=== PATIENT | male | born 1930 | race Caucasian/White ===

== ENCOUNTER 2019-04-26 10:02 | Emergency (ER) | payer OTHER ==
--- OUTSIDE RECORDS SUMMARY | 2019-04-26 10:04 | XMS REPORT ---
:1930 [facility] Address [address] [place] [address] Dr. Ornelas [address] [place] [id number] Care Team Providers Name Role Phone Unavailable Unavailable Unavailable Problems This patient has no known problems. Allergies, Adverse Reactions, Alerts This patient has no known allergies or adverse reactions. Medications This patient has no known medications.
--- NOTE | 2019-04-26 10:50 | RAD REPORT ---
EXAM DESCRIPTION: CT - CTHCSPWOC - 04/26/2019 10:18 am CLINICAL HISTORY: Trauma, head and neck injury. fall COMPARISON: No comparisons TECHNIQUE: Axial 5 mm thick images of the head were obtained. Axial 2 mm thick images of the cervical spine were obtained with sagittal and coronal reconstruction images generated and reviewed. All CT scans are performed using dose optimization technique as appropriate and may include automated exposure control or mA/KV adjustment according to patient size. FINDINGS: CT HEAD WITHOUT CONTRAST: There is evidence of a large mass in the right cerebellar hemisphere with surrounding edema. The mass measures approximately 3.7 x 3.4 cm and exerts significant mass effect on the fourth ventricle to th e left. There is mild shift of posterior fossa midline structures to the left. Prior posterior fossa craniotomy changes are also present.Generalized brain atrophy is seen with mild periventricular and d eep white matter chronic microvascular ischemic changes. No supratentorial midline shift or bleed. Mild mucoperiosteal thickening is seen in the inferior left maxillary antrum and multiple ethmoid air cells.No calvarial fracture evident. Evidence of prior right-sided binh holes and posterior fossa cr aniotomy. CT CERVICAL SPINE WITHOUT CONTRAST: Multilevel degenerative changes are present in the cervical spine. Disc thinning with posterior osteo phyte is present most prominent at C2-3, C4-5, C5-6 and C6-7.The odontoid is normal and the lateral m asses are symmetric.No prevertebral soft tissues swelling is identified. 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 No acute cervical spine abnormality. Findings were discussed with Wilmer Monaco in the emergency room 10:45 a.m. 04/26/2019 by telephone.
--- NOTE | 2019-04-26 10:52 | RAD REPORT ---
EXAM DESCRIPTION: CT - CTFB CLINICAL HISTORY: fall Fall, trauma, head injury COMPARISON: No comparisons TECHNIQUE: Axial 2 mm thick images of the face were obtained with sagittal and coronal reconstructio n images. All CT scans are performed using dose optimization technique as appropriate and may include automated exposure control or mA/KV adjustment according to patient size. FINDINGS: No acute facial bone fracture is seen.Areas of soft tissue swelling are seen in the superi or left forehead.The mandible is intact. The globes and orbital contents are grossly unremarkable.Mild multifocal paranasal sinus opacificatio n. IMPRESSION: Negative for facial bone fracture.
--- NOTE | 2019-04-26 10:54 | RAD REPORT ---
EXAM DESCRIPTION: RAD - Pelvis - 04/26/2019 10:30 am CLINICAL HISTORY: fall Fall, pelvic pain COMPARISON: None FINDINGS: AP pelvis and left hip - multiple projections are submitted No evidence of acute fracture or dislocation.
--- NOTE | 2019-04-26 10:55 | RAD REPORT ---
EXAM DESCRIPTION: RAD - Chest Single View - 04/26/2019 10:31 am CLINICAL HISTORY: fall Chest pain. COMPARISON: Brain W/Wo Cont dated 12/18/2018 FINDINGS: Portable technique limits examination quality. Elevated right hemidiaphragm is present. Lungs are mildly emphysematous but clear. The heart is dimitri l in size. No displaced fractures.
--- NOTE | 2019-04-26 10:58 | RAD REPORT ---
EXAM DESCRIPTION: RAD - Hip Left 2 View - 04/26/2019 10:30 am CLINICAL HISTORY: Fall Fall, pelvic pain COMPARISON: None FINDINGS: AP pelvis and left hip - multiple projections are submitted No evidence of acute fracture or dislocation.
[2019-04-26] MEDS ORDERED: METOPROLOL TAR 25 MG TAB ONE (11:22)
[2019-04-26] MEDS ORDERED: TETANUS & DIPHTHERIA TOX,ADULT 0.5 ML VIAL ONE (11:22)
[2019-04-26] MEDS ORDERED: LIDOCAINE 1% W/EPI 1:100,000 MDV 50 ML VIAL ONE (11:28)
[2019-04-26] MEDS ORDERED: METOPROLOL TARTRATE 5 MG/5 ML INJ IV ONE (12:42)
--- NOTE | 2019-04-26 14:09 | EDPHYS ---
Physician Documentation [facility] Name: Kerrie Shine Age: 88 yrs Sex: Male : 1930 Arrival Date: 04/26/2019 Time: 10:04 Bed 8 Private MD: BRITTNEY Physician Wilmer Dubois HPI: 04/25 10:15 This 88 yrs old Male presents to ER via EMS with complaints of Fall Injury, cp Facial Injury. 10:15 Details of fall: The patient fell from an upright position, while standing. Onset: The cp symptoms/episode began/occurred just prior to arrival. Associated injuries: The patient sustained injury to the head, laceration, of the right latter-day and above left eye, left arm, skin tear. Historical: - Allergies: 10:54 No Known Allergies; tw2 - Home Meds: 10:54 metoprolol succinate 25 mg oral Tb24 1 tab once daily [Active]; gabapentin 300 mg oral tw2 cap 1 cap 3 times per day [Active]; tamsulosin 0.4 mg oral cp24 1 cap once daily [Active]; 11:09 alprazolam 0.25 mg Oral tab [Active]; escitalopram oxalate 5 mg oral tab [Active]; jl7 - PMHx: 10:54 brain cancer; Hypertension; tw2 11:09 BPH; Depression; jl7 - PSHx: 10:54 partial crainotomy, left side; tw2 11:09 cataract; Cholecystectomy; Hernia repair; spinal; Knee surgery; jl7 - Immunization history:: Adult Immunizations Adult Immunizations up to date. - Social history:: Smoking status: Smoking status: Patient denies any tobacco usage or history of. - Immunization history: Last tetanus immunization: unknown. ROS: 10:25 Constitutional: Negative for fever, poor PO intake. cp 10:25 Eyes: Negative for redness, vision loss. cp 10:25 ENT: Negative for drainage from ear(s), ear pain, sore throat, difficulty swallowing, difficulty handling secretions. 10:25 Cardiovascular: Negative for chest pain. 10:25 Respiratory: Negative for cough, shortness of breath, wheezing. 10:25 Abdomen/GI: Negative for abdominal pain, nausea, vomiting, and diarrhea. 10:25 Back: Negative for pain at rest, pain with movement. 10:25 MS/extremity: Positive for pain, of the left hip, Negative for decreased range of motion, deformity. 10:25 Skin: Positive for laceration(s), of the right latter-day and above left eye. 10:25 Neuro: Negative for altered mental status, headache, loss of consciousness, syncope, weakness. 10:25 All other systems are negative. Exam: 10:30 Constitutional: The patient appears in no acute distress, alert, awake, cp non-diaphoretic, non-toxic, well developed, frail. 10:30 Head/face: Noted is ecchymosis, that is moderate, of the forehead and left cheek, a cp laceration(s), that is deep, that is linear, that is jagged, of the right latter-day and above left eye, swelling, that is mild, of the left cheek and left eye. 10:30 Eyes: Pupils: equal, round, and reactive to light and accomodation, Extraocular movements: intact throughout, Conjunctiva: normal, no exudate, no injection, Sclera: no appreciated abnormality. 10:30 ENT: External ear(s): are unremarkable, Ear canal(s): are normal, clear, TM's: bulging, is not appreciated, bilaterally, dullness, bilaterally, erythema, is not appreciated, bilaterally, Nose: is normal, Mouth: Lips: moist, Oral mucosa: moist, Posterior pharynx: is normal, airway is patent, no erythema, no exudate. 10:30 Neck: C-spine: C-collar placed in ED. 10:30 Chest/axilla: Inspection: normal, Palpation: is normal, no crepitus, no tenderness. 10:30 Cardiovascular: Rate: tachycardic, Rhythm: irregularly irregular, Edema: is not appreciated, JVD: is not appreciated. 10:30 Respiratory: the patient does not display signs of respiratory distress, Respirations: normal, no use of accessory muscles, no retractions, labored breathing, is not present, Breath sounds: are clear throughout, no decreased breath sounds, no stridor, no wheezing. 10:30 Abdomen/GI: Inspection: abdomen appears normal, Bowel sounds: active, all quadrants, Palpation: abdomen is soft and non-tender, in all quadrants, voluntary guarding, is not appreciated. 10:30 Back: pain, is absent, ROM is normal. 10:30 Musculoskeletal/extremity: Extremities: grossly normal except: noted in the left hip: pain, tenderness, There is no evidence of decreased ROM, deformity. 10:30 Skin: injury, skin tear left arm. 10:30 Neuro: Orientation: to person, place \T\ time. Mentation: is normal, Motor: moves all fours, strength is normal. Vital Signs: 10:00 BP 146 / 97; Pulse 138; Resp 19; Temp 98.2(O); Pulse Ox 95% on R/A; Pain 0/10; tw2 10:54 BP 142 / 101; Pulse 118; Resp 16; Pulse Ox 95% on R/A; tw2 11:15 BP 127 / 108; Pulse 86; Resp 17; Pulse Ox 96% on R/A; tw2 11:26 BP 133 / 110; Pulse 139; Resp 16; Pulse Ox 95% on R/A; tw2 11:51 BP 124 / 94; Pulse 140; Resp 18; Pulse Ox 95% on R/A; tw2 12:48 BP 131 / 87; Pulse 63; Resp 17; Pulse Ox 97% on R/A; tw2 13:29 BP 124 / 92; Pulse 71; Resp 17; Pulse Ox 97% on R/A; tw2 14:15 BP 108 / 79; Pulse 84; Resp 19; Pulse Ox 97% on R/A; tw2 14:43 BP 110 / 73; Pulse 65; Resp 17; Pulse Ox 97% on R/A; tw2 Mallorie Coma Score: 10:02 Eye Response: spontaneous(4). Verbal Response: oriented(5). Motor Response: obeys tw2 commands(6). Total: 15. Trauma Score (Adult): 10:02 Eye Response: spontaneous(1); Verbal Response: oriented(1); Motor Response: obeys tw2 commands(2); Systolic BP: > 89 mm Hg(4); Respiratory Rate: 10 to 29 per min(4); Mallorie Score: 15; Trauma Score: 12 Laceration: 13:00 Wound Repair of 2.5cm ( 1.0in ) subcutaneous laceration to right latter-day. Linear cp shaped.. Distal neuro/vascular/tendon intact. Anesthesia: Wound infiltrated with 2 mls of 1% lidocaine w/ Epi. Wound prep: Simple cleansing by nurse. Skin closed with 3 5-0 Prolene using simple sutures and sterile technique. Dressed with Bacitracin, bandaid. Patient tolerated well. 13:00 Wound Repair of 6cm ( 2.4in ) subcutaneous laceration to above left eye. Irregularly cp shaped.. Distal neuro/vascular/tendon intact. Anesthesia: Wound infiltrated with 5 mls of 1% lidocaine w/ Epi. Wound prep: Simple cleansing by nurse. Skin closed with 9 5-0 Prolene using simple sutures and sterile technique. Dressed with Bacitracin. Patient tolerated well. MDM: 10:12 Patient medically screened. cp 10:30 Differential diagnosis: closed head injury, contusion, fracture, laceration, multiple cp trauma. 12:20 Data reviewed: vital signs, nurses notes, EKG, radiologic studies, CT scan, plain cp films, I have discussed the patient's presentation/case with the attending Emergency Department Physician;. 12:22 Physician consultation: Jimbo Melendez MD was called at 12:23, was contacted at 12:23, regarding consult, patient's condition, requests discharge back to [facility] to continue hospice. 12:30 ED course: Discussed results with daughter and DR Melendez of head CT showing known brain cp mass now having mass effect. Patient in independent hospice for brain mass due to terminal nature of mass and no treatment requested. Will attempt to transition patient to assisted hospice at [facility]. 14:00 ED course: VSS. Spoke with Shannan at [facility] who reports no current assisted cp living rooms available and next week that possibly assisted living rooms may become available. Discussed this with daughter who is agreeable to discharge patient back to independent hospice. 14:07 Response to treatment: the patient's symptoms have markedly improved after treatment, cp and as a result, I will discharge patient. 04/25 10:11 Order name: CT Head C Spine cp 04/25 10:11 Order name: CT Facial Bones W/O Con cp 04/25 10:11 Order name: XRAY Pelvis cp 04/25 10:11 Order name: XRAY Hip LEFT 2 view cp 04/25 10:11 Order name: XRAY Chest (1 view) cp 04/25 10:53 Order name: CT; Complete Time: 11:05 EDMS 04/25 10:55 Order name: CT; Complete Time: 11:03 EDMS 04/25 10:55 Order name: RAD; Complete Time: 11:03 EDMS 04/25 11:05 Order name: RAD; Complete Time: 11:05 EDMS 04/25 11:05 Order name: RAD; Complete Time: 12:39 EDMS 04/25 10:17 Order name: C-Collar; Complete Time: 10:17 tw2 04/25 11:19 Order name: Dressing - Wound; Complete Time: 14:12 cp 04/25 11:19 Order name: Gloves, Sterile; Complete Time: 11:21 cp 04/25 11:19 Order name: Setup Suture Tray; Complete Time: 11:21 cp 04/25 12:32 Order name: Wound dressing; Complete Time: 12:49 cp Administered Medications: 11:23 Drug: Tetanus-Diphtheria Toxoid Adult 0.5 ml {[employer] 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 Exp: jl7 01/18/2021. Lot #: [id number]. } Route: IM; Site: left deltoid; 12:20 Follow up: Response: No adverse reaction tw2 11:23 Drug: Metoprolol 25 mg Route: PO; jl7 12:20 Follow up: Response: No adverse reaction; No change in condition tw2 11:52 Drug: Lidocaine-Epinephrine -1%: (1:100,000) 10 ml {Note: by JACK Navarrete.} Volume: 20 ml; tw2 Route: Infiltration; 12:47 Not Given (Patient Refused): Lopressor 5 mg IVP once; Hold for SBP <100 or HR <60. tw2 12:47 CANCELLED (Patient Refused): Metoprolol 25 mg PO once tw2 Disposition: 15:00 Chart complete. cp 16:29 Co-signature as Attending Physician, Wilmer Dubois MD I agree with the assessment and franko plan of care. PA/WIND[employer]TER's history reviewed, patient interviewed, and examined. Disposition: 04/26/19 14:08 Discharged to Home. Impression: Fall on same level from slipping, tripping and stumbling, Laceration without foreign body of other part of head, Pain in left hip - from fall. - Condition is Stable. - Discharge Instructions: Atrial Fibrillation, Fall Prevention in the Home, Facial Laceration, Hip Pain. - Prescriptions for Metoprolol Tartrate 25 mg Oral Tablet - take 1 tablet by ORAL route every 12 hours with a meal; 30 tablet. - Medication Reconciliation Form, Thank You Letter, Antibiotic Education, Prescription Opioid Use form. - Follow up: Jimbo Melendez MD; When: 1 week; Reason: Staple/Suture removal. - Problem is new. - Symptoms have improved. Signatures: Dispatcher [employer] EDWilmer Tse MD MD cha Page, Corey, JACK SANTIAGO cp Shira Esteban, RN RN tw2 Nusrat Larson RN RN jl7 Corrections: (The following items were deleted from the chart) 12:24 12:21 Physician consultation: Jimbo Melendez MD was called at 12:21, was contacted at 12:21, regarding consult, patient's condition, requests discharge to home and continue home hospice, 12:47 12:43 Metoprolol 25 mg PO once ordered. tw2 14:09 14:08 04/26/2019 14:08 Discharged to Home. Impression: Fall on same level from slipping, tripping and stumbling; Laceration without foreign body of other part of head. Condition is Stable. Forms are Medication Reconciliation Form, Thank You Letter, Antibiotic Education, Prescription Opioid Use. Follow up: Jimbo Melendez; When: 1 week; Reason: Staple/Suture removal. Problem is new. Symptoms have improved. 14:45 14:09 04/26/2019 14:08 Discharged to Home. Impression: Fall on same level from tw2 slipping, tripping and stumbling; Laceration without foreign body of other part of head; Pain in left hip - from fall. Condition is Stable. Discharge Instructions: Fall Prevention in the Home, Facial Laceration, Hip Pain. Forms are Medication Reconciliation Form, Thank You Letter, Antibiotic Education, Prescription Opioid Use. Follow up: Jimbo Melendez; When: 1 week; Reason: Staple/Suture removal. Problem is new. Symptoms have improved. cp
--- NOTE | 2019-04-26 14:09 | ER ---
Nurse's Notes [facility] Name: Kerrie Shine Age: 88 yrs Sex: Male : 1930 Arrival Date: 04/26/2019 Time: 10:04 Bed 8 Private MD: Diagnosis: Fall on same level from slipping, tripping and stumbling;Laceration without foreign body of other part of head;Pain in left hip-from fall Presentation: 04/25 10:00 Chief complaint: EMS states: pt fell from standing about 1 hour and a half ago and hit tw2 his head, he has lacerations noted to left and right eyebrows also skin tear noted to left forearm and upper arm area, denies LOC, states he did wait approx 30 minutes before he called daughter and then she called us. it was an unwitnessed fall, he lives on the independent side of [facility], vs stable, kerlix laury applied to forehead, bruising noted to left eye and cheek but not clear if this is fresh or not. Coronavirus screen: The patient has NOT traveled to a country currently being monitored by the CDC within the last 14 days. Ebola Screen: Patient negative for fever greater than or equal to 101.5 degrees Fahrenheit, and additional compatible Ebola Virus Disease symptoms. Initial Sepsis Screen: Does the patient meet any 2 criteria? HR > 90 bpm. No. Patient's initial sepsis screen is negative. Does the patient have a suspected source of infection? No. Patient's initial sepsis screen is negative. Risk Assessment: Do you want to hurt yourself or someone else? Patient reports no desire to harm self or others. 10:00 Method Of Arrival: EMS: [facility] tw2 10:00 Acuity: ANDREI 2 tw2 10:00 Care prior to arrival: Bleeding of injury controlled. Injury dressed. Mechanism of tw2 Injury: Fall from standing position. Trauma event details: Injury occurred in the [facility]. 10:00 Onset of symptoms was April 26, 2019. tw2 Triage Assessment: 10:01 General: Appears in no apparent distress. slender, Behavior is calm, cooperative, tw2 appropriate for age. Pain: Complains of pain in forehead, right eye and left eye. EENT: bleeding noted to left and right eyebrow area, dressing applied with laury wrap at this time, secured loosely with coban, bleeding is controlled, dried blood noted on face, bruising purple and red in color noted to left eye and cheek area. Trauma Activation: Alert Physician: ED Physician; Name: ; Notified At: ; Arrived At: Physician: General Surgeon; Name: ; Notified At: ; Arrived At: Physician: Radiology; Name: ; Notified At: ; Arrived At: Physician: Respiratory; Name: ; Notified At: ; Arrived At: Physician: Lab; Name: ; Notified At: ; Arrived At: Historical: - Allergies: 10:54 No Known Allergies; tw2 - Home Meds: :54 metoprolol succinate 25 mg oral Tb24 1 tab once daily [Active]; gabapentin 300 mg oral tw2 cap 1 cap 3 times per day [Active]; tamsulosin 0.4 mg oral cp24 1 cap once daily [Active]; 11:09 alprazolam 0.25 mg Oral tab [Active]; escitalopram oxalate 5 mg oral tab [Active]; jl7 - PMHx: 10:54 brain cancer; Hypertension; tw2 11:09 BPH; Depression; jl7 - PSHx: 10:54 partial crainotomy, left side; tw2 11:09 cataract; Cholecystectomy; Hernia repair; spinal; Knee surgery; jl7 - Immunization history:: Adult Immunizations Adult Immunizations up to date. - Social history:: Smoking status: Smoking status: Patient denies any tobacco usage or history of. - Immunization history: Last tetanus immunization: unknown. Screenin:27 Abuse screen: Denies threats or abuse. Nutritional screening: No deficits noted. tw2 Tuberculosis screening: No symptoms or risk factors identified. Fall Risk Fall in past 12 months (25 points). Primary Survey: 10:02 NO uncontrolled hemorrhage observed. A: The patient is alert. Airway: patent. tw2 Breathing/Chest: Respiratory pattern: regular, Respiratory effort: spontaneous, unlabored. Circulation: Cardiac rhythm: sinus tachycardia Heart tones present. Skin temperature: warm. Disability Alert. Exposure/Environment: All clothing and personal items were removed. Forensic evidence collection is not deemed to be indicated at this time. Items placed in patient belonging bag. There is no evidence of uncontrolled external bleeding. Obvious injury(ies) are noted at this time: skin tears noted to left arm, and lacerations noted to left and right eyebrow A warming method has been applied: A warm blanket has been provided to the patient. 11:00 Reassessment Airway Airway Patent Breathing/Chest Respiratory pattern Regular tw2 Respiratory effort Spontaneous Unlabored Breath sounds Clear Circulation Heart tones Present Color [place] Temperature Warm Dry Disability Alert. Secondary Survey: 10:30 HEENT: Eyes: Raccoon eyes noted. left cheek and left eye. Other purple and red bruising tw2 noted to left eye and under eye down into the cheek area with swelling noted. Gastrointestinal: No deficits noted. Abdomen is soft, Bowel sounds present in all quadrants. : No deficits noted. Musculoskeletal: Circulation, motion, and sensation intact. Range of motion: intact in all extremities. Assessment: 10:11 Reassessment: pt transport to CT via stretcher at this time with technical coordinator Bull. tw2 10:55 Reassessment: Patient appears in no apparent distress at this time. No changes from tw2 previously documented assessment. Patient and/or family updated on plan of care and expected duration. Pain level reassessed. Patient is alert, oriented x 3, equal unlabored respirations, skin warm/dry/pink. 10:56 Reassessment: pts daughter at bedside and confirmed some of pts hx, states "he doesn't tw2 like to say brain cancer, he says brain illness, but i dont know all his health history you will have to call Dr. Melendez", phone call to Dr. Melendez's staff, med records to be faxed to ER at this time. 11:27 Reassessment: Patient appears in no apparent distress at this time. No changes from tw2 previously documented assessment. Patient and/or family updated on plan of care and expected duration. Pain level reassessed. Patient is alert, oriented x 3, equal unlabored respirations, skin warm/dry/pink. 11:51 Reassessment: provider at bedside at this time suturing pt. tw2 12:48 Reassessment: Patient appears in no apparent distress at this time. No changes from tw2 previously documented assessment. Patient is alert, oriented x 3, equal unlabored respirations, skin warm/dry/pink. 13:30 Reassessment: Patient appears in no apparent distress at this time. No changes from tw2 previously documented assessment. Patient and/or family updated on plan of care and expected duration. Pain level reassessed. Patient is alert, oriented x 3, equal unlabored respirations, skin warm/dry/pink. 14:15 Reassessment: Patient appears in no apparent distress at this time. No changes from tw2 previously documented assessment. Patient and/or family updated on plan of care and expected duration. Pain level reassessed. Patient is alert, oriented x 3, equal unlabored respirations, skin warm/dry/pink. 14:43 Reassessment: Patient appears in no apparent distress at this time. No changes from tw2 previously documented assessment. Patient and/or family updated on plan of care and expected duration. Pain level reassessed. Patient is alert, oriented x 3, equal unlabored respirations, skin warm/dry/pink. Vital Signs: 10:00 BP 146 / 97; Pulse 138; Resp 19; Temp 98.2(O); Pulse Ox 95% on R/A; Pain 0/10; tw2 10:54 BP 142 / 101; Pulse 118; Resp 16; Pulse Ox 95% on R/A; tw2 11:15 BP 127 / 108; Pulse 86; Resp 17; Pulse Ox 96% on R/A; tw2 11:26 BP 133 / 110; Pulse 139; Resp 16; Pulse Ox 95% on R/A; tw2 11:51 BP 124 / 94; Pulse 140; Resp 18; Pulse Ox 95% on R/A; tw2 12:48 BP 131 / 87; Pulse 63; Resp 17; Pulse Ox 97% on R/A; tw2 13:29 BP 124 / 92; Pulse 71; Resp 17; Pulse Ox 97% on R/A; tw2 14:15 BP 108 / 79; Pulse 84; Resp 19; Pulse Ox 97% on R/A; tw2 14:43 BP 110 / 73; Pulse 65; Resp 17; Pulse Ox 97% on R/A; tw2 Mallorie Coma Score: 10:02 Eye Response: spontaneous(4). Verbal Response: oriented(5). Motor Response: obeys tw2 commands(6). Total: 15. Trauma Score (Adult): 10:02 Eye Response: spontaneous(1); Verbal Response: oriented(1); Motor Response: obeys tw2 commands(2); Systolic BP: > 89 mm Hg(4); Respiratory Rate: 10 to 29 per min(4); Mallorie Score: 15; Trauma Score: 12 ED Course: 10:00 Arm band placed on. tw2 10:02 Patient maintains SpO2 saturation greater than 95% on room air. tw2 10:02 Thermoregulation: warm blanket given to patient. tw2 10:03 Rigid cervical collar applied and checked by physician. tw2 10:03 Bed in low position. Call light in reach. Side rails up X2. laboratory monitor on. Pulse tw2 ox on. NIBP on. Warm blanket given. Pillow given. 10:04 Patient arrived in ED. iw 10:08 Wilmer Monaco PA is PHCP. cp 10:08 Wilmer Dubois MD is Attending Physician. cp 10:10 Shira Esteban RN is Primary Nurse. tw2 10:16 Triage completed. tw2 11:26 Wound care: was cleaned with with noted increased bleeding to LEFT eyebrow, provider tw2 aware and suture supplies at bedside at this time.. 14:07 Jimbo Melendez MD is Referral Physician. cp 14:13 Awaiting transportation, Awaiting: prior to discharge. tw2 14:43 No provider procedures requiring assistance completed. Patient did not have IV access tw2 during this emergency room visit. 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 Exp: jl7 01/18/2021. Lot #: [id number]. } Route: IM; Site: left deltoid; 12:20 Follow up: Response: No adverse reaction tw2 11:23 Drug: Metoprolol 25 mg Route: PO; jl7 12:20 Follow up: Response: No adverse reaction; No change in condition tw2 11:52 Drug: Lidocaine-Epinephrine -1%: (1:100,000) 10 ml {Note: by JACK Navarrete.} Volume: 20 ml; tw2 Route: Infiltration; 12:47 Not Given (Patient Refused): Lopressor 5 mg IVP once; Hold for SBP <100 or HR <60. tw2 12:47 CANCELLED (Patient Refused): Metoprolol 25 mg PO once tw2 Intake: 10:02 PO: 0ml; Total: 0ml. tw2 Outcome: 12:24 Patient's length of stay in the Emergency Department was greater than 2 hours. tw2 imagingPatient's length of stay extended due to 14:08 Discharge ordered by . cp 14:43 Discharged to home with family. tw2 14:43 Condition: stable 14:43 Discharge instructions given to patient, family, Instructed on discharge instructions, follow up and referral plans. safety practices, Demonstrated understanding of instructions, follow-up care, medications, Prescriptions given X 1. 14:45 Patient left the ED. tw2 Signatures: Rkuhsana Reed RN RN iw Wilmer Monaco PA PA Shira Mercado RN RN tw2 Nusrat Larson RN RN jl7 Corrections: (The following items were deleted from the chart) 13:30 12:48 Reassessment: Patient appears in no apparent distress at this time. No changes tw2 from previously documented assessment. Patient is alert, oriented x 3, equal unlabored respirations, skin warm/dry/pink. Patient is alert/active/playful, equal unlabored respirations, skin warm/dry/pink. tw2
[2019-04-26 15:17] VITALS: O2SAT 97
[2019-04-26 15:21] VITALS: BP 110/73
--- NOTE | 2019-04-27 09:22 | EKG ---
Test Date: 2019-04-26 Test Time: 12:25:19 Pump Operator: KEILY MEASUREMENT RESULTS: Intervals: Rate: 124 OR: QRSD: 98 QT: 320 QTc: 459 [place]: P: OR: QRS: 15 T: 74 INTERPRETIVE STATEMENTS: Sinus rhythm with a transition in to Supraventricular tachycardia possible atrial flutter Abnormal ECG No previous ECG available for comparison Electronically Signed On 04-27-19 09:21:50 TELEPHONE INSTALLER by Reg Corea
== END 2019-04-26 14:45 | disposition home or self-care (01) ==
LOC: ER 10:02
PROC: 0JQ10ZZ Repair Face Subcutaneous Tissue and Fascia, Open Approach (ICD-10-PCS; principal; 2019-04-26)
DX: S01.81XA Laceration without foreign body of other part of head, initial encounter (principal); M25.552 Pain in left hip; W01.0XXA Fall on same level from slipping, tripping and stumbling without subsequent striking against object, initial encounter; Y93.9 Activity, unspecified; Y92.9 Unspecified place or not applicable; I10 Essential (primary) hypertension; F32.9 Major depressive disorder, single episode, unspecified; Z23 Encounter for immunization; Z85.841 Personal history of malignant neoplasm of brain
CPT/HCPCS: 70450; 70486; 71045; 72125; 72170; 76377; 90471; 90714; 93005; 99285